=== PATIENT | female | born 1975 | race Two or more races ===

== ENCOUNTER 2024-02-20 10:45 | Inpatient (IN) | payer OTHER ==
[~2024-02-20] VITALS: Ht 157.5 cm; Wt 81.6 kg
[2024-02-20] MEDS ORDERED: TOPROL XL200 MG PO (12:16)
[2024-02-20] MEDS ORDERED: LEVO-T75 MCG PO (12:16)
[2024-02-20] MEDS ORDERED: ATACAND16 MG PO (12:16)
[2024-02-20] MEDS ORDERED: AMBIEN10 MG PO (12:17)
[2024-02-20] MEDS ORDERED: GRALISE600 MG PO (12:19)
[2024-02-20] MEDS ORDERED: SINGULAIR10 MG PO (12:20)
[2024-02-20 12:21] VITALS: BP 116/73
[2024-02-27] MEDS ORDERED: CEFAZOLIN SODIUM 1,000 MG VIAL ONE (09:43)
[2024-02-27] MEDS ORDERED: TRANEXAMIC ACID 100MG/1ML (1000MG) AMPUL IV ONE ×3 (09:43→15:15)
[2024-02-27] MEDS ORDERED: CLINDAMYCIN PHOSPHATE 150 MG/ML (900mg) ONE (09:55)
[2024-02-27] MEDS ORDERED: KETOROLAC TROMETHAMINE 60 MG VIAL IM ONE (09:55)
[2024-02-27] MEDS ORDERED: VANCOMYCIN HCL 1,000 MG VIAL ONE (09:56)
[2024-02-27] MEDS ORDERED: ONDANSETRON HCL 2 MG/ML VIAL IV PRN (11:15)
[2024-02-27] MEDS ORDERED: OxyCODONE HCL/APAP UD (PERCOCET) PO PRN (11:15)
[2024-02-27] MEDS ORDERED: MORPHINE SULFATE 4 MG/ML CARTRIDGE IV SCH (12:00)
[2024-02-27] MEDS ORDERED: MORPHINE SULFATE 4 MG/ML VIAL IV ONE (15:00)
[2024-02-27] MEDS ORDERED: BUPIVACAINE HCL 30 ML VIAL IJ ONE (15:30)
[2024-02-27] MEDS ORDERED: LIDOCAINE HCL 1%/EPINEPHRINE 20ML VIAL IJ ONE (15:30)
[2024-02-27] MEDS ORDERED: CLINDAMYCIN PHOSPHATE 150 MG/ML (600mg) ONE (16:47)
[2024-02-27] MEDS ORDERED: CLINDAMYCIN PHOSPHATE 150 MG/ML (600mg) IV SCH (17:00)
[2024-02-27 17:27] VITALS: BP 109/57; O2SAT 98
[2024-02-27] MEDS ORDERED: ORPHENADRINE CITRATE 100 MG TABLET PO SCH (21:00)
[2024-02-27] MEDS ORDERED: GABAPENTIN 100 MG CAPSULE PO SCH (21:00)
[2024-02-28] VITALS: BP 122/80; O2SAT 97
[2024-02-28] MEDS ORDERED: LEVOTHYROXINE SODIUM 75 MCG TABLET PO SCH (06:00)
[2024-02-28 08:00] VITALS: BP 107/64; O2SAT 98
[2024-02-28 08:18] LABS: HEMATOCRIT 33.8 % (36.0-45.00); HEMOGLOBIN 12.3 g/dL (12.0-15.00); MEAN CELL VOLUME 89.2 fL (80.00-100.00); MEAN CORPUSCULAR HEMOGLOBIN 32.3 pg (27.00-32.0); MEAN CORPUSCULAR HGB CONC 36.3 g/dl (32.0-36.0); PLATELET COUNT 184 K/uL (150-450); RED BLOOD COUNT 3.79 M/uL (4.00-6.00); RED CELL DISTRIBUTION WIDTH 13.1 % (11.5-14.5)
[2024-02-28] MEDS ORDERED: CANDESARTAN CILEXETIL 16 MG TABLET PO SCH (09:00)
[2024-02-28] MEDS ORDERED: ENOXAPARIN SODIUM 30 MG/0.3 ML SYRINGE SUBCUTANEO SCH (09:00)
[2024-02-28] MEDS ORDERED: METOPROLOL SUCCINATE 100 MG TAB.SR.24H PO SCH (09:00)
[2024-02-28] MEDS ORDERED: Cyanocobalamin/Mecobalamin 1 TAB.SL SL SCH (12:37)
[2024-02-28] MEDS ORDERED: VITAMIN B COMPLEX 1 EACH PO SCH (12:37)
[2024-02-28] MEDS ORDERED: IRON FUM,PS/FOLIC ACID/VITC/B3 1 CAP CAPSULE PO SCH (12:38)
[2024-02-28 16:04] LABS: ALBUMIN 3.9 gm/dL (3.4-5.0); BILIRUBIN TOTAL 2.11 mg/dL (0.3-1.2); CALCIUM 8.8 mg/dL (8.5-10.1); CREATININE SERUM 0.65 mg/dL (0.55-1.02); GFR 96.48; GLOBULINA 3.4 G/DL (2.4-3.5); POTASSIUM 4.12 mEq/L (3.5-5.1); TOTAL PROTEIN 7.3 gm/dL (6.4-8.2)
[2024-02-28 17:11] VITALS: BP 105/72; O2SAT 98
[2024-02-29] VITALS: BP 115/73; O2SAT 96
[2024-02-29 08:00] VITALS: BP 103/60; O2SAT 97
[2024-02-29 08:21] LABS: HEMATOCRIT 35.8 % (36.0-45.00); HEMOGLOBIN 12.8 g/dL (12.0-15.00); MEAN CORPUSCULAR HEMOGLOBIN 31.8 pg (27.00-32.0); MEAN CORPUSCULAR HGB CONC 35.7 g/dl (32.0-36.0); PLATELET COUNT 214 K/uL (150-450); RED BLOOD COUNT 4.02 M/uL (4.00-6.00); RED CELL DISTRIBUTION WIDTH 13.2 % (11.5-14.5)
== END 2024-02-29 13:18 | DRG 470 ==
LOC: O/R 02-27 05:45 → SURH 02-27 07:00
PROVIDERS: ADMIT Orthopaedic Surgery; ATTEND Orthopaedic Surgery
PROC: 0SRC0JZ Replacement of Right Knee Joint with Synthetic Substitute, Open Approach (ICD-10-PCS; principal; 2024-02-27 07:00)
DX: M17.11 Unilateral primary osteoarthritis, right knee (principal); D62 Acute posthemorrhagic anemia; M85.661 Other cyst of bone, right lower leg; I10 Essential (primary) hypertension

== ENCOUNTER 2025-03-04 09:00 | Inpatient (IN) | payer OTHER ==
[2025-02-25 12:30] VITALS: BP 115/73
[~2025-03-04] VITALS: Ht 157.5 cm; Wt 74.4 kg
[~2025-03-04 09:00] MED LIST: AMBIEN10 MG PO; ATACAND16 MG PO; CLONAZEPAM1 MG PO; GRALISE600 MG PO; LEVO-T75 MCG PO; ORENCIA125 MG/1 M; OXYBUTYNIN CHLOR5 M1 PO; ROSUVASTATIN CA40 MG PO; SINGULAIR10 MG PO; TOPROL XL200 MG PO; TRINTELLIX5 MG PO; ZETIA10 MG PO
[2025-03-04] MEDS ORDERED: VANCOMYCIN HCL 1,000 MG VIAL IR ONE (11:30)
[2025-03-04] MEDS ORDERED: KETOROLAC TROMETHAMINE 60 MG VIAL IM ONE (11:30)
[2025-03-04] MEDS ORDERED: MORPHINE SULFATE 4 MG/ML VIAL IV ONE ×2 (11:30→14:55)
[2025-03-04] MEDS ORDERED: VANCOMYCIN HCL 1,000 MG VIAL IV ONE (11:30)
[2025-03-04] MEDS ORDERED: ONDANSETRON HCL 2 MG/ML VIAL IV PRN (12:00)
[2025-03-04] MEDS ORDERED: MORPHINE SULFATE 4 MG/ML VIAL IV SCH (12:00)
[2025-03-04] MEDS ORDERED: OxyCODONE HCL 5 MG TABLET (ROXICODONE) PO SCH (12:00)
[2025-03-04] MEDS ORDERED: GABAPENTIN 100 MG CAPSULE PO SCH (21:00)
[2025-03-04] MEDS ORDERED: VANCOMYCIN HCL 1,000 MG VIAL IV SCH (21:00)
[2025-03-04] MEDS ORDERED: ORPHENADRINE CITRATE 100 MG TABLET PO SCH (21:00)
[2025-03-05 00:50] VITALS: BP 105/66; O2SAT 97
[2025-03-05 06:14] LABS: BASO % 0.1 % (0.1-1.2); EOS # 0.04 (0.04-0.54); EOS % 0.5 % (0.7-7.0); LYMPH # 1.07 (1.18-3.74); LYMPH % 13.5 % (19.3-53.1); MEAN PLATELET VOLUME 9.60 fl (9.4-12.4); MONO # 0.41 (0.24-0.82); MONO % 5.2 % (4.7-12.5); NEUT # 6.39 (1.56-6.13); NEUT % 80.3 % (34.0-71.1); RED CELL DISTRIBUTION WIDTH 12.2 % (11.6-14.4)
[2025-03-05] MEDS ORDERED: RIVAROXABAN 10 MG TAB PO SCH (09:00)
[2025-03-05 10:40] VITALS: BP 123/75; O2SAT 97
[2025-03-05 12:04] LABS: COVID-19 AG NEGATIVE (NEGATIVE)
[2025-03-05 12:55] LABS: BUN CREA RATIO 15.0 (7.0-25.0); CREATININE SERUM 0.55 mg/dL (0.55-1.02); GFR 116.53; GLUCOSE FASTING 102.0 mg/dL (65-100); OSMOLALITY SERUM 278.0 MOSM/KG (275-295)
[2025-03-05] MEDS ORDERED: VANCOMYCIN HCL 1,000 MG VIAL ONE (14:37)
[2025-03-05 16:00] VITALS: BP 86/52; O2SAT 98
[2025-03-05] MEDS ORDERED: IRON FUM,PS/FOLIC ACID/VITC/B3 1 CAP CAPSULE PO SCH (17:00)
[2025-03-05] MEDS ORDERED: Cyanocobalamin/Mecobalamin 1 TAB.SL SL SCH (17:00)
[2025-03-05 18:00] VITALS: BP 111/62; O2SAT 99
[2025-03-05] MEDS ORDERED: FAMOTIDINE/PF 20 MG/2 ML VIAL IV PUSH STA (18:22)
[2025-03-05] MEDS ORDERED: SODIUM CHLORIDE 0.45 % 500 ML IV SCH (21:45)
[2025-03-06 03:00] VITALS: BP 125/76; O2SAT 97
[2025-03-06 06:17] LABS: BASO % 0.1 % (0.1-1.2); EOS # 0.23 (0.04-0.54); EOS % 3.2 % (0.7-7.0); LYMPH # 1.72 (1.18-3.74); LYMPH % 24.3 % (19.3-53.1); MEAN PLATELET VOLUME 9.50 fl (9.4-12.4); MONO # 0.59 (0.24-0.82); MONO % 8.3 % (4.7-12.5); NEUT # 4.51 (1.56-6.13); NEUT % 63.8 % (34.0-71.1); RED CELL DISTRIBUTION WIDTH 12.5 % (11.6-14.4)
[2025-03-06] MEDS ORDERED: VANCOMYCIN HCL 1,000 MG VIAL ONE (07:37)
[2025-03-06 08:48] VITALS: BP 113/70; O2SAT 95
[2025-03-06] MEDS ORDERED: FAMOTIDINE/PF 20 MG/2 ML VIAL IV PUSH SCH ×2 (09:00→21:00)
[2025-03-06] MEDS ORDERED: XARELTO10 MG PO (10:55)
[2025-03-06] MEDS ORDERED: NORFLEX100MG PO (10:55)
[2025-03-06] MEDS ORDERED: GABAPENTIN100 MG PO (10:56)
[2025-03-06] MEDS ORDERED: PERCOCET 5-3251 EACH PO (10:56)
== END 2025-03-06 16:39 | disposition home or self-care (01) | DRG 467 ==
LOC: CIR.AMB 09:00 → EDSTATUS 10:30 → CIR.AMB 10:30 → SURG 10:30 → O/R 14:29 → SURG 14:35 → CIR.AMB 16:00 → SURG 03-06 16:39
PROVIDERS: ADMIT Orthopaedic Surgery; ATTEND Orthopaedic Surgery
PROC: 0SRC0JZ Replacement of Right Knee Joint with Synthetic Substitute, Open Approach (ICD-10-PCS; 2025-03-04)
PROC: 0SBC0ZZ Excision of Right Knee Joint, Open Approach (ICD-10-PCS; 2025-03-04)
PROC: 0SPC0JZ Removal of Synthetic Substitute from Right Knee Joint, Open Approach (ICD-10-PCS; principal; 2025-03-04 16:00)
DX: T84.89XA Other specified complication of internal orthopedic prosthetic devices, implants and grafts, initial encounter (principal); M02.861 Other reactive arthropathies, right knee; Y65.8 Other specified misadventures during surgical and medical care